=== PATIENT | female | born 1985 | race American Indian/Alaskan Native ===

== ENCOUNTER 2021-11-03 18:07 | Emergency (ER) | payer MEDICAID, OTHER ==
[2021-11-03] MEDS ORDERED: ONDANSETRON 4 MG/2 ML INJ IV ONE (19:27)
[2021-11-03] MEDS ORDERED: MORPHINE 4 MG/1 ML INJ IV ONE (19:27)
[2021-11-03] MEDS ORDERED: SODIUM CHLORIDE 0.9% 1000 ML 1,000 ML IV ONE (20:05)
--- NOTE | 2021-11-03 20:39 | XRay Report ---
CHEST 1 VIEW 11/03/2021 7:26 PM INDICATION / CLINICAL INFORMATION: fever s/p surgery. COMPARISON: None available. FINDINGS: SUPPORT DEVICES: None. HEART / MEDIASTINUM: No significant abnormality. LUNGS / PLEURA: Small right basilar and left infrahilar subsegmental atelectasis. The lungs are other donald clear without evidence for pneumonia, pulmonary edema or pleural effusion. No pneumothorax. ADDITIONAL FINDINGS: No significant additional findings. IMPRESSION: 1. Mild right basilar and left infrahilar subsegmental atelectasis. No other acute chest process. Signer Name: Dong Naidu MD Signed: 11/03/2021 8:34 PM Workstation Name: [email or web address]
[2021-11-03 21:01] LABS: Basophils # (Auto) 0.1 K/mm3 (0.0-0.1); Basophils % (Auto) 0.5 % (0.0-1.8); Eosinophils % (Auto) 0.3 % (0.0-4.3); Hematocrit 31.4 % (30.3-42.9); Hemoglobin 9.8 gm/dl (10.1-14.3); Lymphocytes % (Auto) 9.3 % (13.4-35.0); Mean Corpuscular HGB Conc 31 % (30-34); Mean Corpuscular Volume 75 fl (79-97); Monocytes # (Auto) 0.5 K/mm3 (0.0-0.8); Monocytes % (Auto) 5.3 % (0.0-7.3); Platelet Count 318 K/mm3 (140-440); Red Blood Count 4.22 M/mm3 (3.65-5.03)
[2021-11-03 21:07] LABS: Red Cell Distribution Width 21.3 % (13.2-15.2)
[2021-11-03 21:17] LABS: Alanine Aminotransferase 14 units/L (7-56); Albumin 3.9 g/dL (3.9-5); Blood Urea Nitrogen 6 mg/dL (7-17); Calcium 9.2 mg/dL (8.4-10.2); Hemolysis Index 17
[2021-11-03 21:22] LABS: BUN/Creatinine Ratio 10
[2021-11-03 21:48] LABS: Bilirubin,Urine Negative (Negative); Blood,Urine Negative (Negative); Color,Urine Straw (Yellow); PH,Urine 7.5 (5.0-7.0); Protein,Urine <15 mg/dL mg/dL (Negative); Urobilinogen,Urine < 2.0 mg/dL (<2.0)
--- NOTE | 2021-11-03 23:12 | Cat Scan Report ---
CTA CHEST WITH CONTRAST INDICATION / CLINICAL INFORMATION: tachycardic s/p surgery. TECHNIQUE: Axial CT images were obtained through the chest after injection of 100 cc Omnipaque 350 IV contrast. 3 plane MIP and/or 3D reconstructions were produced. All CT scans at this location are per formed using CT dose reduction for ALARA by means of automated exposure control. COMPARISON: CT of the abdomen and pelvis same date. FINDINGS: VASCULAR FINDINGS: PULMONARY ARTERY: Pulmonary artery is normal in size. The middle lobe and bilateral lower lobe segmen flaco and subsegmental branches are significantly blurred by motion and cannot be evaluated. Excluding these vessels, there is no evidence of pulmonary artery embolus.. THORACIC AORTA: No significant abnormality. CORONARY ARTERY CALCIFICATION: Absent -- None. NONVASCULAR FINDINGS: LOWER NECK: Soft tissues and musculature of the lower neck demonstrate no significant abnormality. Th e thyroid demonstrates no significant abnormality. HEART: No significant abnormality. MEDIASTINUM / YANIV: No significant abnormality. ESOPHAGUS: No significant abnormality. LYMPH NODES: No adenopathy within the axilla, mediastinum, or yaniv. LUNGS: Moderate subsegmental atelectasis of the bilateral lower lobes is demonstrated. Minimal atelec tasis of the right middle lobe is present. Lungs are blurred by motion. No focal consolidation or fin dings to suggest pulmonary edema. PLEURA: No pleural effusion. No pneumothorax. THORACIC SOFT TISSUES: No significant abnormality of the chest wall or upper thoracic musculature. BONES: No significant skeletal abnormalities. ADDITIONAL CHEST FINDINGS: None. UPPER ABDOMEN: Please see comparison study. Findings within the abdomen. IMPRESSION: 1. Excluding the right middle lobe and bilateral lower lobe segmental and subsegmental branch vessels which cannot be evaluated secondary to the degree of motion, there is no evidence of pulmonary arter y embolus. 2. Moderate subsegmental atelectasis of the bilateral lower lobes and mild atelectasis of right middl e lobe. No specific evidence of pulmonary edema or other acute pathology. Signer Name: Jessee Galindo II, MD Signed: 11/03/2021 11:08 PM Workstation Name: [id number]
--- NOTE | 2021-11-03 23:21 | Cat Scan Report ---
CT ABDOMEN AND PELVIS WITH CONTRAST INDICATION / CLINICAL INFORMATION: ab pain s/p abdominoplasty on 10/28/2021. TECHNIQUE: Axial CT images were obtained through the abdomen and pelvis after 100 cc Omnipaque [address] scans at this location are performed using CT dose reduction for ALARA by means of automated exposure control. COMPARISON: CT angiography of the chest performed same day. FINDINGS: LOWER CHEST: Please see comparison study for findings. LIVER: No focal lesion. No acute findings. GALLBLADDER / BILE DUCTS: No significant abnormality. Biliary ducts grossly unremarkable. SPLEEN: No significant abnormality. PANCREAS: No significant abnormality. ADRENALS: No significant abnormality. KIDNEYS/URETERS: No stones or hydronephrosis. No solid renal lesion. STOMACH / DUODENUM / SMALL BOWEL: The stomach, duodenum, and small bowel demonstrate no significant a bnormality. No specific abnormality of the mesentery demonstrated. COLON: Moderate stool within the cecum. Large bowel demonstrates no acute findings. APPENDIX: No significant abnormality. PERITONEUM: Small amount of fluid within the dependent pelvis. LYMPH NODES: No significant adenopathy. AORTA / ARTERIES: No significant abnormality. IVC / VEINS: No significant abnormality. URINARY BLADDER: No significant abnormality. REPRODUCTIVE ORGANS: Prior bilateral tubal ligation. The uterus and ovaries demonstrate no acute find ings. SKELETAL SYSTEM: No significant abnormality. ADDITIONAL ABDOMINAL/PELVIC FINDINGS: Postsurgical changes anterior abdominal wall compatible with re cent abdominoplasty. Fluid collection within the upper aspect of the rectus muscles measures 3.5 x 2. 8 cm. This may reflect hematoma or seroma. Additionally along the left abdominal wall there is a moderately large high attenuation fluid collect ion measuring 3.3 cm transverse dimension, 16.7 cm greatest oblique AP dimension, and 7.5 cm cranioca udal dimension. Surgical drain is noted to lie within this collection. IMPRESSION: 1. Postoperative changes from recent abdominoplasty and possibly circumferential body lift. Small rosas unt of fluid noted within the more superior aspect of the invaginated rectus muscles suggesting serom a or hematoma. 2. Large fluid collection within the subcutaneous layer of the left abdominal wall with surgical drai n present. Attenuation suggests hematoma. Signer Name: Jessee Galindo II, MD Signed: 11/03/2021 11:17 PM Workstation Name: [id number]
--- NOTE | 2021-11-03 23:27 | Emergency Department Report ---
ED General Adult HPI - General Chief complaint: Abdominal Pain Stated complaint: FAINTING/ABD BLEEDING Time Seen by Provider: 11/03/21 19:59 Source: EMS Mode of arrival: Stretcher Limitations: Physical Limitation - History of Present Illness Initial comments: The patient presents to the emergency department with a chief complaint of abdominal pain status post an abdominoplasty. Patient has surgery on October 28 and return to [place] today. The surgery was done in [facility]. Patient is also concerned because there is increased drainage that is present in her MARLON drains. Patient states she contacted her plastic surgeon in [facility] and express her concerns about her MARLON drains that she was told to come to the nearest emergency department for evaluation. Patient states that she feels weak but denies fever. Patient is tachycardic on exam with dry mucous membranes. -: Sudden Location: abdomen Severity scale (0 -10): 7 Consistency: constant Improves with: none Worsens with: none Associated Symptoms: denies other symptoms Treatments Prior to Arrival: none - Related Data Home Medications Medication Instructions Recorded Confirmed Last Taken Aspirin [Aspir-Low] 1 tab PO DAILY 03/09/18 03/18/18 1 Week Ago ~03/02/18 Pnv No.95/Ferrous Fum/Folic AC 1 tab PO DAILY 03/09/18 03/18/18 1 Week Ago [ Formula Tablet] ~03/11/18 Previous Rx's Medication Instructions Recorded Last Taken Type Ferrous Sulfate [Feosol 325 MG tab] 325 mg PO BID 30 Days #60 tablet 03/18/18 Unknown Rx Ibuprofen [Ibuprofen 800] 800 mg PO Q6H 10 Days #30 tablet 03/18/18 Unknown Rx MDD 3200mg oxyCODONE /ACETAMINOPHEN [Percocet 1 tab PO Q4HR PRN 14 Days #30 tab 03/18/18 Unknown Rx 5/325] Albuterol Mdi (or & Nicu Only) 2 puff IH Q4HR PRN #1 inhalation 11/03/21 Unknown Rx [ProAir HFA Inhaler] Allergies Allergy/AdvReac Type Severity Reaction Status Date / Time No Known Allergies Allergy Verified 11/03/21 18:38 ED Review of Systems ROS: Stated complaint: FAINTING/ABD BLEEDING Other details as noted in HPI Constitutional: weakness. denies: chills, fever Eyes: denies: eye pain, eye discharge, vision change ENT: denies: ear pain, throat pain Respiratory: denies: cough, shortness of breath, wheezing Cardiovascular: denies: chest pain, palpitations Endocrine: no symptoms reported Gastrointestinal: abdominal pain. denies: nausea, diarrhea Genitourinary: denies: urgency, dysuria, discharge Musculoskeletal: denies: back pain, joint swelling, arthralgia Skin: denies: rash, lesions Neurological: denies: headache, weakness, paresthesias Psychiatric: denies: anxiety, depression Hematological/Lymphatic: denies: easy bleeding, easy bruising ED Past Medical Hx - Past Medical History Previous Medical History?: Yes Hx Hypertension: Yes (with previous ) Hx Diabetes: No Hx Deep Vein Thrombosis: No Hx Renal Disease: No Hx Sickle Cell Disease: No Hx Seizures: No Hx Asthma: Yes (childhhood) Hx HIV: No - Social History Smoking Status: Never Smoker - Medications Home Medications: Home Medications Medication Instructions Recorded Confirmed Last Taken Type Aspirin [Aspir-Low] 1 tab PO DAILY 03/09/18 03/18/18 1 Week Ago History ~03/02/18 Pnv No.95/Ferrous Fum/Folic AC 1 tab PO DAILY 03/09/18 03/18/18 1 Week Ago History [ Formula Tablet] ~03/11/18 Ferrous Sulfate [Feosol 325 MG tab] 325 mg PO BID 30 Days #60 tablet 03/18/18 Unknown Rx Ibuprofen [Ibuprofen 800] 800 mg PO Q6H 10 Days #30 tablet 03/18/18 Unknown Rx MDD 3200mg oxyCODONE /ACETAMINOPHEN [Percocet 1 tab PO Q4HR PRN 14 Days #30 tab 03/18/18 Unknown Rx 5/325] Albuterol Mdi (or & Nicu Only) 2 puff IH Q4HR PRN #1 inhalation 11/03/21 Unknown Rx [ProAir HFA Inhaler] ED Physical Exam - General Limitations: Physical Limitation General appearance: alert, in no apparent distress - Head Head exam: Present: atraumatic, normocephalic - Eye Eye exam: Present: normal appearance - ENT ENT exam: Present: mucous membranes dry - Neck Neck exam: Present: normal inspection - Respiratory Respiratory exam: Present: normal lung sounds bilaterally. Absent: respiratory distress - Cardiovascular Cardiovascular Exam: Present: normal rhythm, tachycardia. Absent: systolic murmur, diastolic murmur, rubs, gallop - GI/Abdominal GI/Abdominal exam: Present: soft, tenderness, normal bowel sounds, other (The patient's abdominoplasty is without signs of infection and appears to be healing well. There is no erythema or warmth to touch. The patient's MARLON drains have serosanguineous fluid in them). Absent: distended - Extremities Exam Extremities exam: Present: normal inspection - Back Exam Back exam: Present: normal inspection - Neurological Exam Neurological exam: Present: alert, oriented X3 - Psychiatric Psychiatric exam: Present: normal affect, normal mood - Skin Skin exam: Present: warm, dry, intact, normal color. Absent: rash ED Course Vital Signs 11/03/21 11/03/21 18:33 20:02 Temperature 99.4 F 99.7 F H Pulse Rate 112 H 111 H Respiratory 18 19 Rate Blood Pressure 143/92 129/84 [Left] O2 Sat by Pulse 99 97 Oximetry ED Medical Decision Making - Lab Data Result diagrams: 11/03/21 20:37 11/03/21 20:37 Lab Results 11/03/21 11/03/21 11/03/21 Range/Units 20:37 20:37 20:37 WBC 10.3 (4.5-11.0) K/mm3 RBC 4.22 (3.65-5.03) M/mm3 Hgb 9.8 L (10.1-14.3) gm/dl Hct 31.4 (30.3-42.9) % MCV 75 L (79-97) fl MCH 23 L (28-32) pg MCHC 31 (30-34) % RDW 21.3 H (13.2-15.2) % Plt Count 318 (140-440) K/mm3 Lymph % (Auto) 9.3 L (13.4-35.0) % [place] % (Auto) 5.3 (0.0-7.3) % Eos % (Auto) 0.3 (0.0-4.3) % Baso % (Auto) 0.5 (0.0-1.8) % Lymph # (Auto) 1.0 L (1.2-5.4) K/mm3 [place] # (Auto) 0.5 (0.0-0.8) K/mm3 Eos # (Auto) 0.0 (0.0-0.4) K/mm3 Baso # (Auto) 0.1 (0.0-0.1) K/mm3 Seg Neutrophils % 84.6 H (40.0-70.0) % Seg Neutrophils # 8.7 H (1.8-7.7) K/mm3 Sodium 133 L (137-145) mmol/L Potassium 4.2 (3.6-5.0) mmol/L Chloride 97.8 L (98-107) mmol/L Carbon Dioxide 24 (22-30) mmol/L Anion Gap 15 mmol/L BUN 6 L (7-17) mg/dL Creatinine 0.6 (0.6-1.2) mg/dL Estimated GFR > 60 ml/min BUN/Creatinine Ratio 10 % Glucose 134 H (65-100) mg/dL Lactic Acid 1.20 (0.7-2.0) mmol/L Calcium 9.2 (8.4-10.2) mg/dL Total Bilirubin 0.20 (0.1-1.2) mg/dL AST 20 (5-40) units/L ALT 14 (7-56) units/L Alkaline Phosphatase 51 (35-129) units/L Total Protein 6.7 (6.3-8.2) g/dL Albumin 3.9 (3.9-5) g/dL Albumin/Globulin Ratio 1.4 % Urine Color (Yellow) Urine Turbidity (Clear) Urine pH (5.0-7.0) Ur Specific [place] (1.003-1.030) Urine Protein (Negative) mg/dL Urine Glucose (UA) (Negative) mg/dL Urine Ketones (Negative) mg/dL Urine Blood (Negative) Urine Nitrite (Negative) Ur Reducing Substances Urine Bilirubin (Negative) Urine Ictotest Urine Urobilinogen (<2.0) mg/dL Ur Leukocyte Esterase (Negative) Urine WBC (Auto) (0.0-6.0) /HPF Urine RBC (Auto) (0.0-6.0) /HPF U Epithel Cells (Auto) (0-13.0) /HPF 11/03/ Range/Units 21:17 WBC (4.5-11.0) K/mm3 RBC (3.65-5.03) M/mm3 Hgb (10.1-14.3) gm/dl Hct (30.3-42.9) % MCV (79-97) fl MCH (28-32) pg MCHC (30-34) % RDW (13.2-15.2) % Plt Count (140-440) K/mm3 Lymph % (Auto) (13.4-35.0) % [place] % (Auto) (0.0-7.3) % Eos % (Auto) (0.0-4.3) % Baso % (Auto) (0.0-1.8) % Lymph # (Auto) (1.2-5.4) K/mm3 [place] # (Auto) (0.0-0.8) K/mm3 Eos # (Auto) (0.0-0.4) K/mm3 Baso # (Auto) (0.0-0.1) K/mm3 Seg Neutrophils % (40.0-70.0) % Seg Neutrophils # (1.8-7.7) K/mm3 Sodium (137-145) mmol/L Potassium (3.6-5.0) mmol/L Chloride (98-107) mmol/L Carbon Dioxide (22-30) mmol/L Anion Gap mmol/L BUN (7-17) mg/dL Creatinine (0.6-1.2) mg/dL Estimated GFR ml/min BUN/Creatinine Ratio % Glucose (65-100) mg/dL Lactic Acid (0.7-2.0) mmol/L Calcium (8.4-10.2) mg/dL Total Bilirubin (0.1-1.2) mg/dL AST (5-40) units/L ALT (7-56) units/L Alkaline Phosphatase (35-129) units/L Total Protein (6.3-8.2) g/dL Albumin (3.9-5) g/dL Albumin/Globulin Ratio % Urine Color Straw (Yellow) Urine Turbidity Clear (Clear) Urine pH 7.5 H (5.0-7.0) Ur Specific [place] 1.005 (1.003-1.030) Urine Protein <15 mg/dl (Negative) mg/dL Urine Glucose (UA) Negative (Negative) mg/dL Urine Ketones 15 (Negative) mg/dL Urine Blood Negative (Negative) Urine Nitrite Negative (Negative) Ur Reducing Substances Not Reportable Urine Bilirubin Negative (Negative) Urine Ictotest Not Reportable Urine Urobilinogen < 2.0 (<2.0) mg/dL Ur Leukocyte Esterase Negative (Negative) Urine WBC (Auto) 2.0 (0.0-6.0) /HPF Urine RBC (Auto) 1.0 (0.0-6.0) /HPF U Epithel Cells (Auto) 2.0 (0-13.0) /HPF - Radiology Data Radiology results: report reviewed - Medical Decision Making Patient given IV meds and IVF's Patient's tachycardia is likely secondary to pain and clinical dehydration which was present on exam Discussed findings with the patient of hematoma/seroma and the need to follow-up with the surgery here in [place] Also discussed findings of atelectasis on exam which we will send the patient home with incentive spirometer and albuterol Critical care attestation.: If time is entered above; I have spent that time in minutes in the direct care of this critically ill patient, excluding procedure time. ED Disposition Clinical Impression: Atelectasis of both lungs, Abdominal pain, Status post abdominoplasty, Hematoma Disposition: 01 HOME / SELF CARE / HOMELESS Is pt being admited?: No Does the pt Need Aspirin: No Condition: Stable Instructions: Abdominal Pain (ED), Abdominal Pain, Adult Additional Instructions: Return if worse Referrals: LISSETTE ALONZO MD [Primary Care Provider] - 3-5 Days KIM POPE MD [Staff Physician] - 3-5 Days Time of Disposition: 23:34
[2021-11-04 00:47] VITALS: BP 138/85
== END 2021-11-03 23:50 | disposition home or self-care (01) ==
LOC: ED 18:07
DX: J98.11 Atelectasis (principal); R10.9 Unspecified abdominal pain; Z48.817 Encounter for surgical aftercare following surgery on the skin and subcutaneous tissue; M79.81 Nontraumatic hematoma of soft tissue; J45.909 Unspecified asthma, uncomplicated
CPT/HCPCS: 36415; 71045; 71275; 74177; 80053; 81001; 82140; 85025; 87040; 96361; 96374; 96375; 99285; J2270; J2405; J7030; Q9967